=== PATIENT | female | born 1985 | race Caucasian/White ===

== ENCOUNTER 2023-01-21 14:27 | Emergency (ER) | payer SELFPAY ==
[~2023-01-21] VITALS: Ht 160 cm; Wt 104.3 kg
[2023-01-21 14:30] VITALS: BP 132/83
--- NOTE | 2023-01-21 14:30 | NUR ---
ARRIVAL PATIENT ARRIVED TO ED8 AMBULATORY, C/O BILATERAL EYE REDNESS AND DRAINAGE FOR THE PAST ONE WEEK, HAS BEEN USING OVER THE COUNTER EYE DROPS WITH MINIMAL RELIEF, CAME TO THE ED FOR EVAL, VITAL SIGNS TAKEN AND DOCTOR NOTIFIED OF PATIENT'S ARRIVAL.
--- NOTE | 2023-01-21 15:30 | ER.PDOC ---
General Chief Complaint: Eye Problems Stated Complaint: EYE IRRITATION Time seen by MD: 15:24 Source: patient Exam Limitations: no limitations History of Present Illness Initial Comments Both eyes matting in the morning for the last few days. She also complains of irritation of the eyes. Timing/Duration: gradual Associated Symptoms: matting Location: both eyes Severity: moderate Apparent Inury: No Allergies: Coded Allergies: Sulfa (Sulfonamide Antibiotics) (Verified Allergy, Unknown, 01/21/23) sulfamethoxazole (Verified Allergy, Unknown, 01/21/23) trimethoprim (Verified Allergy, Unknown, 01/21/23) Past Medical History Medical History: no pertinent history Surgical History: appendectomy, cholecystectomy, tubal Family History Significant Family History: no pertinent family hx Social History Smoking: non-smoker Alcohol Use: none Drug Use: none Constitutional: no symptoms reported Eyes: see HPI Respiratory: no symptoms reported Cardiovascular: no symptoms reported Gastrointestinal: no symptoms reported Musculoskeletal: no symptoms reported All Other Systems: Reviewed and Negative Physical Exam General Appearance: alert, no distress Visual Acuity: no globe trauma Eyelid: nml inspection Conjunctiva/Sclera: (L) injected, (L) exudate Corneas: nml inspection EOM's: intact, no nystagmus Pupils: PERRL, nml accommodation Head/ENT: nml inspection, pharynx nml Skin Exam: Normal Color, Warm/Dry Neck/Back: nml inspection, painless ROM Resp/CVS: no resp distress, lungs clear, heart sounds nml, reg. rate & rhythm Abdomen: non-tender, no organomegaly NEURO/PSYCH: oriented X3, mood/effect nml Results/Orders Results/Orders Vital Signs Date Time Temp Pulse Resp B/P (MAP) Pulse Ox O2 Delivery O2 Flow Rate FiO2 01/21/23 14:30 97.9 78 20 01/21/23 14:30 97.9 78 20 132/83 (99) 93 Room Air* 0 21 01/21/23 14:30 97.9 78 20 93 ER DEPART Departure Time of Disposition: 15:27 Disposition: 01 HOME / SELF CARE / HOMELESS Impression: Primary Impression: Conjunctivitis Condition: Improved Referrals: PCP,UNKNOWN (PCP) PRIMARY CARE PROVIDER Additional Instructions: Gentamicin eye drops F/U with Doctor at [facility] in 2-3 days Return to ED if worsening or concerns Duration or Time Spent with Pa: 10 min Problem Qualifiers Primary Impression: Conjunctivitis Conjunctivitis type: unspecified Laterality: bilateral Qualified Codes: H10.9 - Unspecified conjunctivitis RITA JOHNSON MD Jan 21, 2023 15:30
[2023-01-21 15:33] VITALS: BP 132/83
== END 2023-01-21 15:33 | disposition home or self-care (01) ==
LOC: ER 14:27
DX: H10.9 Unspecified conjunctivitis (principal); Z90.49 Acquired absence of other specified parts of digestive tract; Z98.51 Tubal ligation status; Z88.1 Allergy status to other antibiotic agents; Z88.2 Allergy status to sulfonamides
CPT/HCPCS: 99283